=== PATIENT | female | born 1940 | race Caucasian/White ===

== ENCOUNTER 2018-03-30 15:08 | Inpatient (IN) ==
[2018-03-30] MEDS ORDERED: SODIUM CHLORIDE 0.9% 500 ML IV STA (16:45)
[2018-03-30 17:09] LABS: Basophils # 0.1 10*3/uL (0.0-0.2); Basophils % 0.4 % (0.0-0.8); Eosinophils % 0.1 % (0.00-10.9); Hematocrit 30.8 VOL% (35.7-47.0); Hemoglobin 9.9 GM/DL (12.0-16.0); Immature Granulocytes % 0.7 %; Immature Granulocytes Absolute 0.15 #; Lymphocytes # 1.8 10*3/uL (1.4-4.0); Mean Corpuscular HGB Conc 32.1 GM/DL (32-36); Mean Corpuscular Hemoglobin 29 PG (27-34); Monocytes # 1.2 10*3/uL (0.11-0.8); Monocytes % 5.2 % (1.7-12.7); Neutrophils # 19.6 10*3/uL (1.4-7.4); Neutrophils % 85.6 % (38.7-73.9); Platelet Count 212 T/CUMM (130-400); Red Blood Count 3.46 MC/CUMM (3.8-5.5); Red Cell Distribution Width 17.3 % (9.3-17.3); White Blood Count 22.8 T/CUMM (4-12)
[2018-03-30 17:15] LABS: Apearance,Urine Slightly Hazy (Clear); Bacteria,Urine Occasional /HPF (Few); Bilirubin,Urine Negative (Negative); Blood, Urine Small mg/dL (Negative); Glucose,Urine (UA) Negative (Negative); Ketones,Urine Negative (Negative); Mucus,Urine Occasional /LPF (Occasional); Nitrite,Urine Positive (Negative); Protein,Urine Negative; RBC,Urine 3 /HPF (0-4); Squamous Epithelial Cell,Urine Occasional /HPF (0-10); Urine Color Yellow (Yellow); Urine Specific Gravity 1.013 (1.001-1.035); Urine Urobilinogen < 2.0 EU/DL (0.2-1.0); WBC,Urine 31 /HPF (0-6)
[2018-03-30 17:34] LABS: Band Neutrophils 1 % (0-10); Lymphocytes 8 % (20-55); Platelet Estimate Normal; Segmented Neutrophils 87 % (50-85); Total Cells Counted 100
[2018-03-30 17:35] LABS: Hypochromasia Slight
[2018-03-30 17:39] LABS: Alanine Aminotransferase < 9 U/L (13-56); Alkaline Phosphatase 186 U/L (45-117); Aspartate Amino Transferase 10 U/L (0-37); Blood Urea Nitrogen 17 MG/DL (7-18); Calcium 7.8 MG/DL (8.5-10.1); Glucose 88 MG/DL (74-106); Potassium 3.7 MMOL/L (3.5-5.1); Sodium 136 MMOL/L (136-145); Total Protein 6.6 G/DL (6.4-8.3)
[2018-03-30] MEDS ORDERED: NITROGLYCERIN SL 0.4 MG TABLET SL PRN (19:11)
[2018-03-30] MEDS ORDERED: ENOXAPARIN 30 MG/0.3 ML SYRINGE SUBCUT SCH (19:11)
[2018-03-30] MEDS ORDERED: MONTELUKAST 10 MG TABLET PO PRN (19:11)
[2018-03-30] MEDS: SODIUM CHLORIDE 0.9% 1,000 ML IV SCH (19:58)
[2018-03-30] MEDS: CHOLESTYRAMINE 4 GM PACK PO SCH (21:42)
[2018-03-30] MEDS: metroNIDAZOLE 250 MG TABLET PO SCH (21:42)
[2018-03-30] MEDS: ATORVASTATIN 20 MG TABLET PO SCH (21:42)
[2018-03-30] MEDS: FAMOTIDINE 20 MG TABLET PO SCH (21:42)
[2018-03-31] MEDS: VANCOMYCIN 50 MG/ML 60 ML/BOTTLE PO SCH ×4 (00:38→17:50)
[2018-03-31] MEDS: ONDANSETRON 4 MG/2 ML VIAL IV PRN ×2 (01:40→10:29)
[2018-03-31 05:13] LABS: Basophils # 0.1 10*3/uL (0.0-0.2); Basophils % 0.4 % (0.0-0.8); Eosinophils % 0.2 % (0.00-10.9); Hematocrit 27.1 VOL% (35.7-47.0); Hemoglobin 8.6 GM/DL (12.0-16.0); Immature Granulocytes % 0.7 %; Immature Granulocytes Absolute 0.13 #; Lymphocytes # 2.4 10*3/uL (1.4-4.0); Lymphocytes % 13.8 % (21.3-54.2); Mean Corpuscular HGB Conc 31.7 GM/DL (32-36); Mean Corpuscular Hemoglobin 28 PG (27-34); Mean Corpuscular Volume 88.3 FL (87-102); Monocytes # 1.3 10*3/uL (0.11-0.8); Monocytes % 7.6 % (1.7-12.7); Neutrophils # 13.5 10*3/uL (1.4-7.4); Neutrophils % 77.3 % (38.7-73.9); Platelet Count 192 T/CUMM (130-400); Red Blood Count 3.07 MC/CUMM (3.8-5.5); Red Cell Distribution Width 17.2 % (9.3-17.3); White Blood Count 17.5 T/CUMM (4-12)
[2018-03-31 05:27] LABS: INR 1.5; PT Patient Result 16.1 SECS
[2018-03-31 05:47] LABS: Calcium 7.4 MG/DL (8.5-10.1); Osmolality,Calculated 274.7 MOS/KG (273-304); Potassium 3.5 MMOL/L (3.5-5.1); Troponin I 0.028 NG/ML (0.00-0.045)
[2018-03-31] MEDS: LEVOTHYROXINE 50 MCG TABLET PO SCH (06:12)
[2018-03-31] MEDS ORDERED: NON-FORMULARY MEDICATION (Tiotropium Br/Olodaterol Hcl [Stiolto Respimat Inhal Spray] 1 PU INH SCH (09:00)
[2018-03-31] MEDS: ALLOPURINOL 300 MG TABLET PO SCH (09:37)
[2018-03-31] MEDS: ISOSORBIDE MONONITRATE 30 MG TABLET PO SCH (09:37)
[2018-03-31] MEDS: CHOLESTYRAMINE 4 GM PACK PO SCH ×2 (09:37→22:49)
[2018-03-31] MEDS: metroNIDAZOLE 250 MG TABLET PO SCH ×4 (09:37→22:49)
[2018-03-31] MEDS: PANTOPRAZOLE 40 MG TABLET PO SCH (09:37)
[2018-03-31] MEDS: RIVAROXABAN 20 MG TABLET PO SCH (09:37)
[2018-03-31] MEDS: SODIUM CHLORIDE 0.9% 1,000 ML IV SCH ×2 (13:08→16:44)
[2018-03-31] MEDS: FAMOTIDINE 20 MG TABLET PO SCH (22:49)
[2018-03-31] MEDS: ATORVASTATIN 20 MG TABLET PO SCH (22:49)
[2018-04-01] MEDS: VANCOMYCIN 50 MG/ML 60 ML/BOTTLE PO SCH ×4 (00:36→17:06)
[2018-04-01 04:41] LABS: Basophils # 0.1 10*3/uL (0.0-0.2); Basophils % 0.5 % (0.0-0.8); Eosinophils # 0.1 10*3/uL (0.0-0.87); Hematocrit 28.3 VOL% (35.7-47.0); Hemoglobin 8.8 GM/DL (12.0-16.0); Immature Granulocytes % 0.8 %; Immature Granulocytes Absolute 0.09 #; Lymphocytes # 1.9 10*3/uL (1.4-4.0); Lymphocytes % 17.2 % (21.3-54.2); Mean Corpuscular HGB Conc 31.1 GM/DL (32-36); Mean Corpuscular Hemoglobin 28 PG (27-34); Mean Corpuscular Volume 89.8 FL (87-102); Mean Platelet Volume 12.4 FL (9.6-12.0); Monocytes % 9.3 % (1.7-12.7); Neutrophils # 7.8 10*3/uL (1.4-7.4); Neutrophils % 71.2 % (38.7-73.9); Platelet Count 181 T/CUMM (130-400); Red Blood Count 3.15 MC/CUMM (3.8-5.5); Red Cell Distribution Width 17.2 % (9.3-17.3); White Blood Count 10.9 T/CUMM (4-12)
[2018-04-01 05:00] LABS: Calcium 7.5 MG/DL (8.5-10.1); Osmolality,Calculated 274.7 MOS/KG (273-304); Potassium 3.4 MMOL/L (3.5-5.1)
[2018-04-01 05:11] LABS: Risk Ratio 1.42; VLDL CHOLESTEROL 7.6 MG/DL
[2018-04-01] MEDS: LEVOTHYROXINE 50 MCG TABLET PO SCH (05:36)
[2018-04-01] MEDS: metroNIDAZOLE 250 MG TABLET PO SCH ×4 (08:39→20:30)
[2018-04-01] MEDS: RIVAROXABAN 20 MG TABLET PO SCH (08:39)
[2018-04-01] MEDS: ISOSORBIDE MONONITRATE 30 MG TABLET PO SCH (08:39)
[2018-04-01] MEDS: ALLOPURINOL 300 MG TABLET PO SCH (08:39)
[2018-04-01] MEDS: PANTOPRAZOLE 40 MG TABLET PO SCH (08:40)
[2018-04-01] MEDS: CHOLESTYRAMINE 4 GM PACK PO SCH (08:40)
[2018-04-01] MEDS: MAGNESIUM OXIDE 400 MG TABLET PO SCH ×2 (10:03→20:30)
[2018-04-01] MEDS: POTASSIUM CHLORIDE 20 MEQ TABLET PO SCH ×3 (10:04→17:05)
[2018-04-01] MEDS: SODIUM CHLORIDE 0.9% 1,000 ML IV SCH (12:09)
[2018-04-01] MEDS: ONDANSETRON 4 MG/2 ML VIAL IV PRN (12:10)
[2018-04-01] MEDS: ATORVASTATIN 20 MG TABLET PO SCH (20:30)
[2018-04-01] MEDS: FAMOTIDINE 20 MG TABLET PO SCH (20:30)
[2018-04-02] MEDS: VANCOMYCIN 50 MG/ML 60 ML/BOTTLE PO SCH ×2 (00:11→06:21)
[2018-04-02] MEDS: SODIUM CHLORIDE 0.9% 1,000 ML IV SCH (01:33)
[2018-04-02 05:21] LABS: Calcium 7.5 MG/DL (8.5-10.1); Osmolality,Calculated 274.5 MOS/KG (273-304); Potassium 4.1 MMOL/L (3.5-5.1)
[2018-04-02] MEDS: LEVOTHYROXINE 50 MCG TABLET PO SCH (06:20)
[2018-04-02 08:37] VITALS: BP 178/72
[2018-04-02] MEDS ORDERED: metroNIDAZOLE 250 MG TABLET PO SCH (09:00)
[2018-04-02] MEDS: ISOSORBIDE MONONITRATE 30 MG TABLET PO SCH (09:07)
[2018-04-02] MEDS: RIVAROXABAN 20 MG TABLET PO SCH (09:07)
[2018-04-02] MEDS: MAGNESIUM OXIDE 400 MG TABLET PO SCH (09:07)
[2018-04-02] MEDS: ALLOPURINOL 300 MG TABLET PO SCH (09:08)
[2018-04-02] MEDS: PANTOPRAZOLE 40 MG TABLET PO SCH (09:08)
== END 2018-04-02 11:25 | disposition home or self-care (01) | DRG 372 ==
LOC: EDUNIT# → EDBD → N.ED 15:08 → N.EDINP 17:51 → N.3E 19:09
PROVIDERS: ADMIT Internal Medicine; ATTEND Internal Medicine

== ENCOUNTER 2021-07-17 06:18 | Observation (INO) ==
[2021-07-17 08:47] LABS: Basophils # 0.1 10*3/uL (0.0-0.2); Basophils % 0.6 % (0.0-0.8); Eosinophils # 0.2 10*3/uL (0.0-0.87); Eosinophils % 2.3 % (0.00-10.9); Hematocrit 24.5 VOL% (35.7-47.0); Hemoglobin 7.7 GM/DL (12.0-16.0); Immature Granulocytes % 0.5 %; Immature Granulocytes Absolute 0.04 #; Lymphocytes % 24.9 % (21.3-54.2); Mean Corpuscular HGB Conc 31.4 GM/DL (32-36); Mean Corpuscular Volume 97.2 FL (87-102); Mean Platelet Volume 11.2 FL (9.6-12.0); Monocytes # 0.7 10*3/uL (0.11-0.8); Neutrophils % 62.7 % (38.7-73.9); Platelet Count 136 T/CUMM (130-400); Red Blood Count 2.52 MC/CUMM (3.8-5.5); Red Cell Distribution Width 16.7 % (9.3-17.3); White Blood Count 8.2 T/CUMM (4-12)
[2021-07-17 09:31] LABS: Albumin 3.1 G/DL (3.4-5.0); Bilirubin,Total 0.5 MG/DL (0.20-1.00); Calcium 8.7 MG/DL (8.5-10.1); Osmolality,Calculated 283.5 MOS/KG (273-304); Potassium 4.8 MMOL/L (3.5-5.1); Total Protein 6.4 G/DL (6.4-8.2)
[2021-07-17] MEDS ORDERED: DEXTROSE 10% 250 ML BAG IV PRN (10:09)
[2021-07-17] MEDS ORDERED: ACETAMINOPHEN 325 MG TABLET PO PRN (10:09)
[2021-07-17] MEDS ORDERED: hydrALAZINE 20 MG/1 ML VIAL IV PRN (10:09)
[2021-07-17] MEDS ORDERED: GLUCAGON 1 MG VIAL IM PRN (10:09)
[2021-07-17] MEDS ORDERED: SODIUM CHLORIDE 0.9% 1,000 ML IV PRN (10:18)
[2021-07-17 15:26] LABS: Bacteria,Urine Many /HPF (Few); Squamous Epithelial Cell,Urine Occasional /HPF (0-10)
[2021-07-17 15:27] LABS: Bilirubin,Urine Negative (Negative); Blood, Urine Negative (Negative); Glucose,Urine (UA) Negative (Negative); Ketones,Urine Negative (Negative); Nitrite,Urine Positive (Negative); Protein,Urine Negative (Negative); Urine Appearance Slightly Cloudy (Clear); Urine Color Yellow (Yellow); Urine Specific Gravity 1.025 (1.001-1.035); Urine Urobilinogen 0.2 eU/dL (<2.0)
[2021-07-17] MEDS: LACTATED RINGERS 1,000 ML IV SCH (18:12)
[2021-07-17 19:18] LABS: Hematocrit 24.1 VOL% (35.7-47.0); Hemoglobin 7.7 GM/DL (12.0-16.0)
[2021-07-18] MEDS: LACTATED RINGERS 1,000 ML IV SCH ×2 (02:00→15:20)
[2021-07-18 05:32] LABS: Basophils # 0.1 10*3/uL (0.0-0.2); Basophils % 0.9 % (0.0-0.8); Eosinophils # 0.2 10*3/uL (0.0-0.87); Eosinophils % 2.6 % (0.00-10.9); Hematocrit 26.2 VOL% (35.7-47.0); Hemoglobin 8.5 GM/DL (12.0-16.0); Immature Granulocytes % 0.5 %; Immature Granulocytes Absolute 0.03 #; Lymphocytes # 1.8 10*3/uL (1.4-4.0); Lymphocytes % 27.8 % (21.3-54.2); Mean Corpuscular HGB Conc 32.4 GM/DL (32-36); Mean Platelet Volume 11.4 FL (9.6-12.0); Monocytes # 0.6 10*3/uL (0.11-0.8); Monocytes % 8.9 % (1.7-12.7); Neutrophils % 59.3 % (38.7-73.9); Platelet Count 130 T/CUMM (130-400); Red Blood Count 2.73 MC/CUMM (3.8-5.5); Red Cell Distribution Width 16.3 % (9.3-17.3); White Blood Count 6.6 T/CUMM (4-12)
[2021-07-18 05:56] LABS: Calcium 8.9 MG/DL (8.5-10.1); Osmolality,Calculated 280.7 MOS/KG (273-304); Potassium 5.2 MMOL/L (3.5-5.1); Risk Ratio 1.76; Thyroid Stimulating Hormone 6.16 uIU/ml (0.358-3.74); VLDL Cholesterol 10.8 MG/DL
[2021-07-18 05:58] LABS: Hypochromia Slight; Platelet Estimate Normal
[2021-07-18] MEDS: PANTOPRAZOLE 40 MG TABLET PO SCH (08:37)
[2021-07-18] MEDS ORDERED: NITROGLYCERIN SL 0.4 MG TABLET SL PRN (10:36)
[2021-07-18] MEDS ORDERED: SULFAMETHOX/TRIMETHOPRIM 800-160 MG TABLET PO SCH (12:00)
[2021-07-18] MEDS: ONDANSETRON 4 MG/2 ML VIAL IV PRN ×2 (12:20→21:16)
[2021-07-18] MEDS: ISOSORBIDE MONONITRATE 60 MG TABLET PO SCH (12:22)
[2021-07-18] MEDS: MAGNESIUM OXIDE 400 MG TABLET PO SCH ×2 (12:22→21:00)
[2021-07-18] MEDS: VALSARTAN 80 MG TABLET PO SCH (12:22)
[2021-07-18] MEDS: GABAPENTIN 400 MG CAPSULE PO SCH ×2 (12:22→21:00)
[2021-07-18] MEDS: SULFAMETHOX/TRIMETHOPRIM 800-160 MG TABLET PO SCH ×2 (12:23→21:00)
[2021-07-18 15:47] LABS: % Iron Saturation 25.1 % (18-50)
[2021-07-18 15:55] LABS: Folate 12.94 NG/ML (5.38-24.0)
[2021-07-19] MEDS: LACTATED RINGERS 1,000 ML IV SCH (04:17)
[2021-07-19 05:39] LABS: Basophils % 0.6 % (0.0-0.8); Eosinophils # 0.2 10*3/uL (0.0-0.87); Eosinophils % 2.5 % (0.00-10.9); Hematocrit 24.6 VOL% (35.7-47.0); Hemoglobin 7.8 GM/DL (12.0-16.0); Immature Granulocytes % 0.3 %; Immature Granulocytes Absolute 0.02 #; Lymphocytes # 1.6 10*3/uL (1.4-4.0); Lymphocytes % 25.3 % (21.3-54.2); Mean Corpuscular HGB Conc 31.7 GM/DL (32-36); Mean Corpuscular Volume 97.2 FL (87-102); Mean Platelet Volume 11.5 FL (9.6-12.0); Monocytes # 0.6 10*3/uL (0.11-0.8); Monocytes % 9.6 % (1.7-12.7); Neutrophils % 61.7 % (38.7-73.9); Platelet Count 118 T/CUMM (130-400); Red Blood Count 2.53 MC/CUMM (3.8-5.5); Red Cell Distribution Width 16.3 % (9.3-17.3); White Blood Count 6.4 T/CUMM (4-12)
[2021-07-19 05:55] LABS: Calcium 8.5 MG/DL (8.5-10.1); Osmolality,Calculated 277.7 MOS/KG (273-304); Potassium 5.5 MMOL/L (3.5-5.1)
[2021-07-19] MEDS ORDERED: LEVOTHYROXINE 50 MCG TABLET PO SCH (06:30)
[2021-07-19] MEDS ORDERED: SODIUM POLYSTYRENE SULFATE 15 GM/60 ML BOTTLE PO STA (07:37)
[2021-07-19] MEDS: ONDANSETRON 4 MG/2 ML VIAL IV PRN (08:05)
[2021-07-19] MEDS ORDERED: allopurinoL 300 MG TABLET PO SCH (09:00)
[2021-07-19] MEDS: PANTOPRAZOLE 40 MG TABLET PO SCH (09:08)
[2021-07-19] MEDS: SULFAMETHOX/TRIMETHOPRIM 800-160 MG TABLET PO SCH (09:08)
[2021-07-19] MEDS: MAGNESIUM OXIDE 400 MG TABLET PO SCH (09:09)
[2021-07-19] MEDS: VALSARTAN 80 MG TABLET PO SCH (09:09)
[2021-07-19] MEDS: ISOSORBIDE MONONITRATE 60 MG TABLET PO SCH (09:09)
[2021-07-19] MEDS: GABAPENTIN 400 MG CAPSULE PO SCH (09:09)
[2021-07-19] MEDS ORDERED: SODIUM CHLORIDE 0.9% 1,000 ML IV PRN (09:14)
[2021-07-19 14:15] VITALS: BP 155/81
[2021-07-19 15:06] LABS: Hematocrit 28.3 VOL% (35.7-47.0)
[2021-07-19] MEDS ORDERED: ATORVASTATIN 20 MG TABLET PO SCH (21:00)
== END 2021-07-19 16:00 | disposition home or self-care (01) ==
LOC: EDBD → EDUNIT# → N.EDINP 06:18 → N.ED 06:18 → SUATTDRO 09:13 → N.EDINP 15:30 → N.3E 15:33
PROVIDERS: ADMIT Hospitalist; ATTEND Internal Medicine

== ENCOUNTER 2021-12-14 05:27 | Inpatient (IN) ==
[2021-12-14 05:57] LABS: Arterial Base Excess iSTAT 5 MMOL/L (-2.5-2.5); Arterial Bicarbonate iSTAT 34.2 MMOL/L (20-26); Arterial O2 Saturation iSTAT 99 % (95-100); Arterial PCO2 iSTAT 78 MM HG (35-48); Arterial PO2 iSTAT 169 MM HG (80-95); Arterial Total CO2 iSTAT 37 MMO/L (23-27); Arterial pH iSTAT 7.251 (7.35-7.45)
[2021-12-14] MEDS ORDERED: ETOMIDATE 20 MG/10 ML VIAL IV ONE (05:59)
[2021-12-14] MEDS ORDERED: VECURONIUM 10 MG VIAL IV ONE (05:59)
[2021-12-14 06:02] LABS: Basophils % 0.4 % (0.0-0.8); Eosinophils # 0.1 10*3/uL (0.0-0.87); Eosinophils % 1.5 % (0.00-10.9); Hematocrit 32.8 VOL% (35.7-47.0); Hemoglobin 9.4 GM/DL (12.0-16.0); Immature Granulocytes % 0.6 %; Immature Granulocytes Absolute 0.05 #; Lymphocytes # 1.3 10*3/uL (1.4-4.0); Lymphocytes % 17.1 % (21.3-54.2); Mean Corpuscular HGB Conc 28.7 GM/DL (32-36); Mean Corpuscular Volume 103.5 FL (87-102); Mean Platelet Volume 11.5 FL (9.6-12.0); Monocytes # 0.8 10*3/uL (0.11-0.8); Monocytes % 10.8 % (1.7-12.7); Neutrophils % 69.6 % (38.7-73.9); Platelet Count 146 T/CUMM (130-400); Red Blood Count 3.17 MC/CUMM (3.8-5.5); Red Cell Distribution Width 20.2 % (9.3-17.3); White Blood Count 7.8 T/CUMM (4-12)
[2021-12-14] MEDS ORDERED: ETOMIDATE 20 MG/10 ML VIAL IV STA (06:03)
[2021-12-14] MEDS ORDERED: VECURONIUM 10 MG VIAL IV STA (06:04)
[2021-12-14 06:26] LABS: Alanine Aminotransferase 25 U/L (13-56); Albumin 3.1 G/DL (3.4-5.0); Alkaline Phosphatase 152 U/L (45-117); Aspartate Amino Transferase 18 U/L (0-37); Blood Urea Nitrogen 23 MG/DL (7-18); Calcium 8.7 MG/DL (8.5-10.1); Carbon Dioxide 35 MMOL/L (21-32); Chloride 103 MMOL/L (98-107); Glucose 107 MG/DL (74-106); Osmolality,Calculated 284.3 MOS/KG (273-304); Potassium 4.3 MMOL/L (3.5-5.1); Sodium 141 MMOL/L (136-145); Total Protein 6.1 G/DL (6.4-8.2)
[2021-12-14 06:51] LABS: Barbiturates Screen,Urine Negative (Negative); Benzodiazepines Screen,Urine Negative (Negative); Cannabinoid Screen,Urine Negative (Negative); Opiate Screen,Urine Negative (Negative); Phencyclidine Screen,Urine Negative (Negative)
[2021-12-14 07:01] LABS: Bacteria,Urine Occasional /HPF (Few); Bilirubin,Urine Negative (Negative); Blood, Urine Negative (Negative); Glucose,Urine (UA) Negative (Negative); Hyaline Casts,Urine 34 /LPF (0-3); Ketones,Urine 5 mg/dL (Negative); Mucus,Urine Few /LPF (Occasional); Nitrite,Urine Positive (Negative); Protein,Urine 30 mg/dL (Negative); RBC,Urine 1 /HPF (0-4); Squamous Epithelial Cell,Urine Occasional /HPF (0-10); Urine Appearance Slightly Hazy (Clear); Urine Color Amber (Yellow); Urine Specific Gravity 1.019 (1.001-1.035)
[2021-12-14] MEDS ORDERED: INFLUENZA VIRUS VACCINE 0.5 ML SYRINGE IM ONE (10:44)
[2021-12-14 11:21] LABS: Arterial Base Excess iSTAT 8 MMOL/L (-2.5-2.5); Arterial O2 Saturation iSTAT 100 % (95-100); Arterial PCO2 iSTAT 61 MM HG (35-48); Arterial PO2 iSTAT 573 MM HG (80-95); Arterial Total CO2 iSTAT 37 MMO/L (23-27); Arterial pH iSTAT 7.366 (7.35-7.45)
[2021-12-14] MEDS: INSULIN LISPRO 100 UNIT/ML SUBCUT SCH ×2 (11:50→18:10)
[2021-12-14] MEDS ORDERED: NITROGLYCERIN SL 0.4 MG TABLET SL PRN (12:15)
[2021-12-14] MEDS ORDERED: hydroCHLOROthiazide 25 MG TABLET PO PRN (12:15)
[2021-12-14] MEDS: cefTRIAXone 1,000 MG in SODIUM CHLORIDE 0.9% 100 ML IV SCH (12:25)
[2021-12-14] MEDS: carvediloL 3.125 MG TABLET PO SCH ×2 (12:39→21:06)
[2021-12-14] MEDS: ISOSORBIDE MONONITRATE 60 MG TABLET PO SCH (12:39)
[2021-12-14] MEDS: AZITHROMYCIN INJ 250 MG in SODIUM CHLORIDE 0.9% 250 ML IV SCH (12:56)
[2021-12-14] MEDS ORDERED: MIDAZOLAM 2 MG/2 ML VIAL IV ONE (13:50)
[2021-12-14] MEDS ORDERED: MIDAZOLAM 2 MG/2 ML VIAL ONE (13:50)
[2021-12-14] MEDS ORDERED: MIDAZOLAM 100 MG in SODIUM CHLORIDE 0.9% 80 ML IV SCH (14:30)
[2021-12-14] MEDS: GABAPENTIN 400 MG CAPSULE PO SCH (21:06)
[2021-12-14] MEDS: FERROUS SULFATE 325 MG TABLET PO SCH (21:06)
[2021-12-14] MEDS: MAGNESIUM OXIDE 400 MG TABLET PO SCH (21:06)
[2021-12-14] MEDS: MIDAZOLAM 100 MG in SODIUM CHLORIDE 0.9% 80 ML IV PRN (22:17)
[2021-12-15] MEDS: INSULIN LISPRO 100 UNIT/ML SUBCUT SCH ×4 (00:11→18:26)
[2021-12-15] MEDS: PHENYLEPHRINE DRIP 40 MG/250 ML PREMIX IV PRN (00:18)
[2021-12-15 03:26] LABS: ABG Base Excess 4.1 MMOL/L (-2.5-2.5); ABG HCO3 28.1 MMOL/L (20-26); ABG Oxygen Saturation 99.6 % (95-100); ABG PCO2 44.6 MM HG (35-48); ABG PH 7.421 (7.35-7.45)
[2021-12-15 03:28] LABS: Basophils % 0.4 % (0.0-0.8); Eosinophils # 0.1 10*3/uL (0.0-0.87); Eosinophils % 1.1 % (0.00-10.9); Hematocrit 27.8 VOL% (35.7-47.0); Hemoglobin 8.5 GM/DL (12.0-16.0); Lymphocytes # 1.2 10*3/uL (1.4-4.0); Lymphocytes % 11.3 % (21.3-54.2); Mean Corpuscular HGB Conc 30.6 GM/DL (32-36); Mean Corpuscular Volume 97.2 FL (87-102); Mean Platelet Volume 11.2 FL (9.6-12.0); Monocytes % 9.9 % (1.7-12.7); Neutrophils % 76.3 % (38.7-73.9); Platelet Count 137 T/CUMM (130-400); Red Blood Count 2.86 MC/CUMM (3.8-5.5); Red Cell Distribution Width 19.5 % (9.3-17.3); White Blood Count 10.4 T/CUMM (4-12)
[2021-12-15 03:45] LABS: Albumin 2.4 G/DL (3.4-5.0); Bilirubin,Total 0.7 MG/DL (0.20-1.00); Calcium 8.2 MG/DL (8.5-10.1); Osmolality,Calculated 284.1 MOS/KG (273-304); Phosphorous 2.3 MG/DL (2.5-4.9); Potassium 3.4 MMOL/L (3.5-5.1); Total Protein 5.2 G/DL (6.4-8.2)
[2021-12-15] MEDS: LEVOTHYROXINE 50 MCG TABLET PO SCH (06:35)
[2021-12-15] MEDS: ISOSORBIDE MONONITRATE 60 MG TABLET PO SCH (08:57)
[2021-12-15] MEDS: carvediloL 3.125 MG TABLET PO SCH (08:57)
[2021-12-15] MEDS: FERROUS SULFATE 325 MG TABLET PO SCH ×2 (08:57→20:31)
[2021-12-15] MEDS: VALSARTAN 160 MG TABLET PO SCH (08:57)
[2021-12-15] MEDS: allopurinoL 100 MG TABLET PO SCH (08:58)
[2021-12-15] MEDS: MAGNESIUM OXIDE 400 MG TABLET PO SCH ×2 (08:58→20:31)
[2021-12-15] MEDS: GABAPENTIN 400 MG CAPSULE PO SCH ×2 (09:01→20:31)
[2021-12-15] MEDS ORDERED: FUROSEMIDE 40 MG/4 ML VIAL IV ONE (09:41)
[2021-12-15] MEDS: POTASSIUM CHLORIDE 20 MEQ TABLET PO PRN ×3 (10:36→14:29)
[2021-12-15] MEDS: cefTRIAXone 1,000 MG in SODIUM CHLORIDE 0.9% 100 ML IV SCH (10:37)
[2021-12-15] MEDS: AZITHROMYCIN INJ 250 MG in SODIUM CHLORIDE 0.9% 250 ML IV SCH (11:31)
[2021-12-15] MEDS: carvediloL 6.25 MG TABLET NG SCH (20:02)
[2021-12-15] MEDS: ISOSORBIDE DINITRATE 10 MG TABLET NG SCH (20:03)
[2021-12-16] MEDS: INSULIN LISPRO 100 UNIT/ML SUBCUT SCH ×5 (00:24→23:52)
[2021-12-16 03:35] LABS: ABG Base Excess 8.6 MMOL/L (-2.5-2.5); ABG HCO3 32.4 MMOL/L (20-26); ABG Oxygen Saturation 99.3 % (95-100); ABG PCO2 47.4 MM HG (35-48); ABG PH 7.458 (7.35-7.45); ABG TCO2 31.2 MMOL/L (23-27)
[2021-12-16 03:39] LABS: Basophils % 0.4 % (0.0-0.8); Eosinophils # 0.1 10*3/uL (0.0-0.87); Eosinophils % 0.9 % (0.00-10.9); Hematocrit 27.7 VOL% (35.7-47.0); Hemoglobin 8.7 GM/DL (12.0-16.0); Lymphocytes # 1.4 10*3/uL (1.4-4.0); Lymphocytes % 14.3 % (21.3-54.2); Mean Corpuscular HGB Conc 31.4 GM/DL (32-36); Mean Corpuscular Volume 95.5 FL (87-102); Mean Platelet Volume 11.7 FL (9.6-12.0); Monocytes # 1.1 10*3/uL (0.11-0.8); Monocytes % 11.3 % (1.7-12.7); Neutrophils % 72.1 % (38.7-73.9); Platelet Count 160 T/CUMM (130-400); Red Cell Distribution Width 19.3 % (9.3-17.3); White Blood Count 10.1 T/CUMM (4-12)
[2021-12-16 03:57] LABS: Calcium 8.3 MG/DL (8.5-10.1); Osmolality,Calculated 282.5 MOS/KG (273-304); Potassium 3.9 MMOL/L (3.5-5.1)
[2021-12-16] MEDS: LEVOTHYROXINE 50 MCG TABLET PO SCH (06:22)
[2021-12-16] MEDS: PHENYLEPHRINE DRIP 40 MG/250 ML PREMIX IV PRN (07:37)
[2021-12-16] MEDS ORDERED: MAGNESIUM SULF RIDER 2 GM/50 ML PREMIX IV ONE (07:54)
[2021-12-16] MEDS: FERROUS SULFATE 325 MG TABLET PO SCH ×2 (09:31→20:17)
[2021-12-16] MEDS: ASPIRIN CHEW 81 MG TABLET PO SCH (09:31)
[2021-12-16] MEDS: MAGNESIUM OXIDE 400 MG TABLET PO SCH ×2 (09:31→20:17)
[2021-12-16] MEDS: ISOSORBIDE DINITRATE 10 MG TABLET NG SCH (09:31)
[2021-12-16] MEDS: VALSARTAN 160 MG TABLET PO SCH (09:31)
[2021-12-16] MEDS: carvediloL 6.25 MG TABLET NG SCH (09:31)
[2021-12-16] MEDS: GABAPENTIN 400 MG CAPSULE PO SCH ×2 (09:31→20:17)
[2021-12-16] MEDS: allopurinoL 100 MG TABLET PO SCH (09:59)
[2021-12-16] MEDS: cefTRIAXone 1,000 MG in SODIUM CHLORIDE 0.9% 100 ML IV SCH (11:37)
[2021-12-16] MEDS: AZITHROMYCIN INJ 250 MG in SODIUM CHLORIDE 0.9% 250 ML IV SCH (12:10)
[2021-12-16] MEDS: PANTOPRAZOLE 40 MG VIAL IV SCH (15:18)
[2021-12-17 03:31] LABS: Basophils # 0.1 10*3/uL (0.0-0.2); Basophils % 0.5 % (0.0-0.8); Eosinophils # 0.1 10*3/uL (0.0-0.87); Hematocrit 28.6 VOL% (35.7-47.0); Hemoglobin 9.1 GM/DL (12.0-16.0); Immature Granulocytes % 1.1 %; Immature Granulocytes Absolute 0.11 #; Lymphocytes # 1.8 10*3/uL (1.4-4.0); Lymphocytes % 18.6 % (21.3-54.2); Mean Corpuscular HGB Conc 31.8 GM/DL (32-36); Mean Corpuscular Volume 94.7 FL (87-102); Mean Platelet Volume 12.1 FL (9.6-12.0); Monocytes # 1.2 10*3/uL (0.11-0.8); Monocytes % 12.4 % (1.7-12.7); Neutrophils % 66.4 % (38.7-73.9); Platelet Count 166 T/CUMM (130-400); Red Blood Count 3.02 MC/CUMM (3.8-5.5); Red Cell Distribution Width 19.2 % (9.3-17.3); White Blood Count 9.8 T/CUMM (4-12)
[2021-12-17 03:32] LABS: ABG Base Excess 8.1 MMOL/L (-2.5-2.5); ABG HCO3 31.9 MMOL/L (20-26); ABG Oxygen Saturation 99.4 % (95-100); ABG PCO2 46.8 MM HG (35-48); ABG PH 7.456 (7.35-7.45); ABG TCO2 30.3 MMOL/L (23-27)
[2021-12-17 03:46] LABS: Calcium 8.3 MG/DL (8.5-10.1); Osmolality,Calculated 280.8 MOS/KG (273-304); Potassium 4.3 MMOL/L (3.5-5.1)
[2021-12-17] MEDS: PHENYLEPHRINE DRIP 40 MG/250 ML PREMIX IV PRN ×2 (04:39→22:14)
[2021-12-17] MEDS: INSULIN LISPRO 100 UNIT/ML SUBCUT SCH ×4 (05:38→23:24)
[2021-12-17] MEDS: LEVOTHYROXINE 50 MCG TABLET PO SCH (05:38)
[2021-12-17] MEDS: PANTOPRAZOLE 40 MG VIAL IV SCH (08:22)
[2021-12-17] MEDS: ASPIRIN CHEW 81 MG TABLET PO SCH (08:24)
[2021-12-17] MEDS: allopurinoL 100 MG TABLET PO SCH (08:24)
[2021-12-17] MEDS: MAGNESIUM OXIDE 400 MG TABLET PO SCH ×2 (08:24→20:46)
[2021-12-17] MEDS: GABAPENTIN 400 MG CAPSULE PO SCH ×2 (08:25→20:46)
[2021-12-17] MEDS: FERROUS SULFATE 325 MG TABLET PO SCH ×2 (08:25→20:46)
[2021-12-17 09:26] LABS: Myeloperoxidase Antibody 0.5 U
[2021-12-17] MEDS: cefTRIAXone 1,000 MG in SODIUM CHLORIDE 0.9% 100 ML IV SCH (11:20)
[2021-12-17] MEDS: AZITHROMYCIN INJ 250 MG in SODIUM CHLORIDE 0.9% 250 ML IV SCH (12:33)
[2021-12-17 14:47] LABS: Antinuclear Ab, S 0.4 U
[2021-12-17] MEDS: ATORVASTATIN 80 MG TABLET PO SCH (20:46)
[2021-12-18] MEDS: MIDAZOLAM 100 MG in SODIUM CHLORIDE 0.9% 80 ML IV PRN (02:59)
[2021-12-18 04:12] LABS: ABG Base Excess 5.2 MMOL/L (-2.5-2.5); ABG HCO3 29.1 MMOL/L (20-26); ABG Oxygen Saturation 99.2 % (95-100); ABG PH 7.412 (7.35-7.45); ABG TCO2 28.2 MMOL/L (23-27)
[2021-12-18 04:16] LABS: Basophils # 0.1 10*3/uL (0.0-0.2); Basophils % 0.7 % (0.0-0.8); Eosinophils # 0.3 10*3/uL (0.0-0.87); Eosinophils % 2.3 % (0.00-10.9); Hematocrit 29.6 VOL% (35.7-47.0); Hemoglobin 9.3 GM/DL (12.0-16.0); Immature Granulocytes % 1.3 %; Immature Granulocytes Absolute 0.15 #; Lymphocytes % 17.6 % (21.3-54.2); Mean Corpuscular HGB Conc 31.4 GM/DL (32-36); Mean Corpuscular Volume 96.4 FL (87-102); Mean Platelet Volume 12.1 FL (9.6-12.0); Monocytes # 1.2 10*3/uL (0.11-0.8); Monocytes % 10.7 % (1.7-12.7); Neutrophils % 67.4 % (38.7-73.9); Platelet Count 185 T/CUMM (130-400); Red Blood Count 3.07 MC/CUMM (3.8-5.5); Red Cell Distribution Width 19.3 % (9.3-17.3); White Blood Count 11.2 T/CUMM (4-12)
[2021-12-18 04:26] LABS: Calcium 8.1 MG/DL (8.5-10.1); Osmolality,Calculated 281.7 MOS/KG (273-304); Potassium 4.2 MMOL/L (3.5-5.1)
[2021-12-18] MEDS: LEVOTHYROXINE 50 MCG TABLET PO SCH (05:51)
[2021-12-18] MEDS: INSULIN LISPRO 100 UNIT/ML SUBCUT SCH ×3 (05:51→18:25)
[2021-12-18] MEDS: GABAPENTIN 400 MG CAPSULE PO SCH ×2 (09:23→20:51)
[2021-12-18] MEDS: FERROUS SULFATE 325 MG TABLET PO SCH ×2 (09:24→20:51)
[2021-12-18] MEDS: ASPIRIN CHEW 81 MG TABLET PO SCH (09:24)
[2021-12-18] MEDS: allopurinoL 100 MG TABLET PO SCH (09:24)
[2021-12-18] MEDS: MAGNESIUM OXIDE 400 MG TABLET PO SCH ×2 (09:24→20:51)
[2021-12-18] MEDS: ATORVASTATIN 80 MG TABLET PO SCH ×2 (09:24→20:51)
[2021-12-18] MEDS: PANTOPRAZOLE 40 MG VIAL IV SCH (09:25)
[2021-12-18] MEDS ORDERED: FUROSEMIDE 40 MG/4 ML VIAL IV ONE (10:00)
[2021-12-18] MEDS: cefTRIAXone 1,000 MG in SODIUM CHLORIDE 0.9% 100 ML IV SCH (11:47)
[2021-12-18] MEDS: HYDROCORTISONE 100 MG VIAL IV SCH ×2 (11:47→18:25)
[2021-12-18] MEDS: AZITHROMYCIN INJ 250 MG in SODIUM CHLORIDE 0.9% 250 ML IV SCH (12:20)
[2021-12-18] MEDS: PHENYLEPHRINE DRIP 40 MG/250 ML PREMIX IV PRN (13:13)
[2021-12-19] MEDS: INSULIN LISPRO 100 UNIT/ML SUBCUT SCH ×5 (00:27→23:50)
[2021-12-19] MEDS: HYDROCORTISONE 100 MG VIAL IV SCH ×3 (03:36→18:14)
[2021-12-19 04:04] LABS: ABG Base Excess 4.3 MMOL/L (-2.5-2.5); ABG HCO3 28.3 MMOL/L (20-26); ABG Oxygen Saturation 99.1 % (95-100); ABG PCO2 45.3 MM HG (35-48); ABG TCO2 26.9 MMOL/L (23-27)
[2021-12-19 04:10] LABS: Basophils % 0.2 % (0.0-0.8); Hemoglobin 9.3 GM/DL (12.0-16.0); Immature Granulocytes % 0.9 %; Immature Granulocytes Absolute 0.11 #; Lymphocytes # 0.9 10*3/uL (1.4-4.0); Lymphocytes % 7.9 % (21.3-54.2); Mean Corpuscular Volume 95.2 FL (87-102); Monocytes # 0.5 10*3/uL (0.11-0.8); Monocytes % 4.5 % (1.7-12.7); Neutrophils % 86.5 % (38.7-73.9); Platelet Count 193 T/CUMM (130-400); Red Blood Count 3.15 MC/CUMM (3.8-5.5); Red Cell Distribution Width 18.7 % (9.3-17.3); White Blood Count 11.8 T/CUMM (4-12)
[2021-12-19 04:25] LABS: Calcium 8.3 MG/DL (8.5-10.1); Osmolality,Calculated 282.1 MOS/KG (273-304); Potassium 3.8 MMOL/L (3.5-5.1)
[2021-12-19] MEDS: LEVOTHYROXINE 50 MCG TABLET PO SCH (05:56)
[2021-12-19] MEDS: PANTOPRAZOLE 40 MG VIAL IV SCH (09:08)
[2021-12-19] MEDS: MAGNESIUM OXIDE 400 MG TABLET PO SCH ×2 (09:08→21:00)
[2021-12-19] MEDS: GABAPENTIN 400 MG CAPSULE PO SCH ×2 (09:08→21:00)
[2021-12-19] MEDS: ATORVASTATIN 80 MG TABLET PO SCH (09:08)
[2021-12-19] MEDS: allopurinoL 100 MG TABLET PO SCH (09:08)
[2021-12-19] MEDS: FERROUS SULFATE 325 MG TABLET PO SCH ×2 (09:08→21:00)
[2021-12-19] MEDS: ASPIRIN CHEW 81 MG TABLET PO SCH (09:08)
[2021-12-20] MEDS: HYDROCORTISONE 100 MG VIAL IV SCH ×3 (03:26→19:01)
[2021-12-20 04:12] LABS: Basophils % 0.1 % (0.0-0.8); Hematocrit 28.9 VOL% (35.7-47.0); Hemoglobin 9.2 GM/DL (12.0-16.0); Immature Granulocytes % 1.1 %; Immature Granulocytes Absolute 0.16 #; Lymphocytes % 6.7 % (21.3-54.2); Mean Corpuscular HGB Conc 31.8 GM/DL (32-36); Mean Corpuscular Volume 95.4 FL (87-102); Mean Platelet Volume 12.1 FL (9.6-12.0); Monocytes # 0.9 10*3/uL (0.11-0.8); Monocytes % 6.1 % (1.7-12.7); Platelet Count 191 T/CUMM (130-400); Red Blood Count 3.03 MC/CUMM (3.8-5.5); White Blood Count 14.1 T/CUMM (4-12)
[2021-12-20 04:14] LABS: ABG HCO3 28.9 MMOL/L (20-26); ABG Oxygen Saturation 99.1 % (95-100); ABG PH 7.424 (7.35-7.45); ABG TCO2 27.3 MMOL/L (23-27)
[2021-12-20 04:40] LABS: Calcium 8.3 MG/DL (8.5-10.1); Osmolality,Calculated 286.7 MOS/KG (273-304); Potassium 3.8 MMOL/L (3.5-5.1)
[2021-12-20] MEDS: INSULIN LISPRO 100 UNIT/ML SUBCUT SCH ×4 (06:03→23:40)
[2021-12-20] MEDS: LEVOTHYROXINE 50 MCG TABLET PO SCH (06:03)
[2021-12-20] MEDS ORDERED: FUROSEMIDE 40 MG/4 ML VIAL IV ONE (08:09)
[2021-12-20] MEDS: GABAPENTIN 400 MG CAPSULE PO SCH ×2 (08:52→20:39)
[2021-12-20] MEDS: ASPIRIN CHEW 81 MG TABLET PO SCH (08:53)
[2021-12-20] MEDS: ATORVASTATIN 80 MG TABLET PO SCH (08:53)
[2021-12-20] MEDS: allopurinoL 100 MG TABLET PO SCH (08:53)
[2021-12-20] MEDS: FERROUS SULFATE 325 MG TABLET PO SCH ×2 (08:53→20:39)
[2021-12-20] MEDS: MAGNESIUM OXIDE 400 MG TABLET PO SCH ×2 (08:53→20:39)
[2021-12-20] MEDS: PANTOPRAZOLE 40 MG VIAL IV SCH (08:55)
[2021-12-21] MEDS: HYDROCORTISONE 100 MG VIAL IV SCH ×2 (03:39→20:11)
[2021-12-21 04:03] LABS: Basophils % 0.1 % (0.0-0.8); Hematocrit 30.3 VOL% (35.7-47.0); Hemoglobin 9.5 GM/DL (12.0-16.0); Immature Granulocytes % 0.9 %; Immature Granulocytes Absolute 0.11 #; Lymphocytes # 1.1 10*3/uL (1.4-4.0); Lymphocytes % 8.9 % (21.3-54.2); Mean Corpuscular HGB Conc 31.4 GM/DL (32-36); Mean Corpuscular Volume 95.9 FL (87-102); Mean Platelet Volume 11.5 FL (9.6-12.0); Monocytes # 0.8 10*3/uL (0.11-0.8); Monocytes % 6.5 % (1.7-12.7); Neutrophils % 83.6 % (38.7-73.9); Platelet Count 194 T/CUMM (130-400); Red Blood Count 3.16 MC/CUMM (3.8-5.5); White Blood Count 11.8 T/CUMM (4-12)
[2021-12-21 04:18] LABS: Calcium 8.4 MG/DL (8.5-10.1); Osmolality,Calculated 289.5 MOS/KG (273-304)
[2021-12-21 04:43] LABS: ABG Base Excess 6.4 MMOL/L (-2.5-2.5); ABG HCO3 30.3 MMOL/L (20-26); ABG Oxygen Saturation 98.4 % (95-100); ABG PCO2 48.3 MM HG (35-48); ABG PH 7.426 (7.35-7.45)
[2021-12-21] MEDS: LEVOTHYROXINE 50 MCG TABLET PO SCH (06:01)
[2021-12-21] MEDS: INSULIN LISPRO 100 UNIT/ML SUBCUT SCH ×4 (06:01→20:11)
[2021-12-21 08:39] LABS: c-ANCA Negative (Negative); p-ANCA Negative (Negative)
[2021-12-21] MEDS: ASPIRIN CHEW 81 MG TABLET PO SCH (08:50)
[2021-12-21] MEDS: MAGNESIUM OXIDE 400 MG TABLET PO SCH ×2 (08:50→20:13)
[2021-12-21] MEDS: ATORVASTATIN 80 MG TABLET PO SCH (08:50)
[2021-12-21] MEDS: FERROUS SULFATE 325 MG TABLET PO SCH ×2 (08:50→20:20)
[2021-12-21] MEDS: GABAPENTIN 400 MG CAPSULE PO SCH ×2 (08:51→20:11)
[2021-12-21] MEDS: allopurinoL 100 MG TABLET PO SCH (08:51)
[2021-12-21] MEDS: PANTOPRAZOLE 40 MG VIAL IV SCH (09:43)
[2021-12-22 03:41] LABS: Basophils % 0.2 % (0.0-0.8); Hematocrit 31.8 VOL% (35.7-47.0); Hemoglobin 9.8 GM/DL (12.0-16.0); Immature Granulocytes % 0.9 %; Lymphocytes % 9.1 % (21.3-54.2); Mean Corpuscular HGB Conc 30.8 GM/DL (32-36); Mean Corpuscular Volume 97.8 FL (87-102); Mean Platelet Volume 11.1 FL (9.6-12.0); Monocytes # 0.7 10*3/uL (0.11-0.8); Monocytes % 6.7 % (1.7-12.7); Neutrophils % 83.1 % (38.7-73.9); Platelet Count 198 T/CUMM (130-400); Red Blood Count 3.25 MC/CUMM (3.8-5.5); Red Cell Distribution Width 19.1 % (9.3-17.3); White Blood Count 10.7 T/CUMM (4-12)
[2021-12-22 04:16] LABS: Albumin 2.4 G/DL (3.4-5.0); Bilirubin,Total 0.5 MG/DL (0.20-1.00); Calcium 8.7 MG/DL (8.5-10.1); Osmolality,Calculated 290.7 MOS/KG (273-304); Potassium 3.9 MMOL/L (3.5-5.1); Total Protein 6.1 G/DL (6.4-8.2)
[2021-12-22] MEDS: LEVOTHYROXINE 50 MCG TABLET PO SCH (05:40)
[2021-12-22] MEDS: INSULIN LISPRO 100 UNIT/ML SUBCUT SCH ×4 (07:15→20:35)
[2021-12-22] MEDS: ASPIRIN CHEW 81 MG TABLET PO SCH (09:09)
[2021-12-22] MEDS: MAGNESIUM OXIDE 400 MG TABLET PO SCH ×2 (09:09→20:34)
[2021-12-22] MEDS: FERROUS SULFATE 325 MG TABLET PO SCH ×2 (09:09→20:34)
[2021-12-22] MEDS: ATORVASTATIN 80 MG TABLET PO SCH (09:09)
[2021-12-22] MEDS: PANTOPRAZOLE 40 MG VIAL IV SCH (09:10)
[2021-12-22] MEDS: allopurinoL 100 MG TABLET PO SCH (09:11)
[2021-12-22] MEDS: GABAPENTIN 400 MG CAPSULE PO SCH ×2 (09:15→20:34)
[2021-12-22] MEDS: HYDROCORTISONE 100 MG VIAL IV SCH (09:36)
[2021-12-22] MEDS: predniSONE 20 MG TABLET PO SCH (10:36)
[2021-12-23] MEDS: hydrALAZINE 20 MG/1 ML VIAL IV PRN (01:18)
[2021-12-23 03:58] LABS: Basophils % 0.1 % (0.0-0.8); Hematocrit 33.3 VOL% (35.7-47.0); Hemoglobin 10.2 GM/DL (12.0-16.0); Immature Granulocytes % 0.9 %; Immature Granulocytes Absolute 0.11 #; Lymphocytes # 1.6 10*3/uL (1.4-4.0); Lymphocytes % 13.9 % (21.3-54.2); Mean Corpuscular HGB Conc 30.6 GM/DL (32-36); Mean Corpuscular Volume 97.4 FL (87-102); Mean Platelet Volume 11.1 FL (9.6-12.0); Monocytes # 1.2 10*3/uL (0.11-0.8); Monocytes % 9.9 % (1.7-12.7); Neutrophils % 75.2 % (38.7-73.9); Platelet Count 247 T/CUMM (130-400); Red Blood Count 3.42 MC/CUMM (3.8-5.5); White Blood Count 11.6 T/CUMM (4-12)
[2021-12-23 04:26] LABS: Calcium 8.7 MG/DL (8.5-10.1); Osmolality,Calculated 291.4 MOS/KG (273-304); Potassium 3.8 MMOL/L (3.5-5.1)
[2021-12-23] MEDS: LEVOTHYROXINE 50 MCG TABLET PO SCH (05:30)
[2021-12-23] MEDS: INSULIN LISPRO 100 UNIT/ML SUBCUT SCH ×4 (07:24→21:51)
[2021-12-23] MEDS ORDERED: FUROSEMIDE 20 MG/2 ML VIAL IV ONE (08:41)
[2021-12-23] MEDS: predniSONE 20 MG TABLET PO SCH (08:58)
[2021-12-23] MEDS: PANTOPRAZOLE 40 MG VIAL IV SCH (08:58)
[2021-12-23] MEDS: ASPIRIN CHEW 81 MG TABLET PO SCH (08:58)
[2021-12-23] MEDS: MAGNESIUM OXIDE 400 MG TABLET PO SCH ×2 (08:59→21:52)
[2021-12-23] MEDS: FERROUS SULFATE 325 MG TABLET PO SCH ×2 (08:59→21:52)
[2021-12-23] MEDS: ATORVASTATIN 80 MG TABLET PO SCH (08:59)
[2021-12-23] MEDS: allopurinoL 100 MG TABLET PO SCH (08:59)
[2021-12-23] MEDS: GABAPENTIN 400 MG CAPSULE PO SCH ×2 (09:01→21:52)
[2021-12-24 05:32] LABS: Basophils % 0.1 % (0.0-0.8); Hematocrit 32.3 VOL% (35.7-47.0); Hemoglobin 9.9 GM/DL (12.0-16.0); Immature Granulocytes % 0.9 %; Lymphocytes # 1.4 10*3/uL (1.4-4.0); Lymphocytes % 13.2 % (21.3-54.2); Mean Corpuscular HGB Conc 30.7 GM/DL (32-36); Mean Corpuscular Volume 95.8 FL (87-102); Mean Platelet Volume 11.5 FL (9.6-12.0); Neutrophils % 76.8 % (38.7-73.9); Platelet Count 239 T/CUMM (130-400); Red Blood Count 3.37 MC/CUMM (3.8-5.5); Red Cell Distribution Width 18.8 % (9.3-17.3); White Blood Count 10.9 T/CUMM (4-12)
[2021-12-24 06:03] LABS: Calcium 8.5 MG/DL (8.5-10.1); Potassium 3.8 MMOL/L (3.5-5.1)
[2021-12-24] MEDS: hydrALAZINE 20 MG/1 ML VIAL IV PRN (06:10)
[2021-12-24] MEDS: LEVOTHYROXINE 50 MCG TABLET PO SCH (06:11)
[2021-12-24] MEDS: INSULIN LISPRO 100 UNIT/ML SUBCUT SCH ×4 (08:00→20:42)
[2021-12-24] MEDS: ASPIRIN CHEW 81 MG TABLET PO SCH (09:01)
[2021-12-24] MEDS: PANTOPRAZOLE 40 MG VIAL IV SCH (09:01)
[2021-12-24] MEDS: allopurinoL 100 MG TABLET PO SCH (09:02)
[2021-12-24] MEDS: FERROUS SULFATE 325 MG TABLET PO SCH ×2 (09:02→20:41)
[2021-12-24] MEDS: GABAPENTIN 400 MG CAPSULE PO SCH ×2 (09:02→20:42)
[2021-12-24] MEDS: MAGNESIUM OXIDE 400 MG TABLET PO SCH ×2 (09:02→20:42)
[2021-12-24] MEDS: predniSONE 20 MG TABLET PO SCH (09:02)
[2021-12-24] MEDS: FUROSEMIDE 20 MG TABLET PO SCH (09:02)
[2021-12-24] MEDS: ATORVASTATIN 80 MG TABLET PO SCH (09:07)
[2021-12-24 10:19] LABS: Pt O2 Delivery Device Room Air
[2021-12-24 10:20] LABS: ABG Base Excess 8.1 MMOL/L (-2.5-2.5); ABG HCO3 31.8 MMOL/L (20-26); ABG Oxygen Saturation 97.3 % (95-100); ABG PCO2 45.8 MM HG (35-48); ABG PH 7.464 (7.35-7.45); ABG PO2 83.8 MM HG (80-95); ABG TCO2 29.9 MMOL/L (23-27)
[2021-12-24] MEDS: VALSARTAN 160 MG TABLET PO SCH (10:24)
[2021-12-25] MEDS: LEVOTHYROXINE 50 MCG TABLET PO SCH (05:30)
[2021-12-25 05:50] LABS: Calcium 8.7 MG/DL (8.5-10.1); Potassium 3.8 MMOL/L (3.5-5.1)
[2021-12-25 05:55] LABS: Basophils % 0.1 % (0.0-0.8); Eosinophils % 0.1 % (0.00-10.9); Hematocrit 31.1 VOL% (35.7-47.0); Hemoglobin 9.5 GM/DL (12.0-16.0); Immature Granulocytes % 0.6 %; Immature Granulocytes Absolute 0.06 #; Lymphocytes # 2.1 10*3/uL (1.4-4.0); Lymphocytes % 20.5 % (21.3-54.2); Mean Corpuscular HGB Conc 30.5 GM/DL (32-36); Mean Corpuscular Volume 99.4 FL (87-102); Mean Platelet Volume 11.1 FL (9.6-12.0); Monocytes # 0.9 10*3/uL (0.11-0.8); Monocytes % 9.2 % (1.7-12.7); Neutrophils % 69.5 % (38.7-73.9); Platelet Count 215 T/CUMM (130-400); Red Blood Count 3.13 MC/CUMM (3.8-5.5); Red Cell Distribution Width 19.1 % (9.3-17.3); White Blood Count 10.2 T/CUMM (4-12)
[2021-12-25] MEDS: INSULIN LISPRO 100 UNIT/ML SUBCUT SCH ×3 (07:51→17:57)
[2021-12-25] MEDS ORDERED: predniSONE 20 MG TABLET PO SCH (09:00)
[2021-12-25] MEDS: FERROUS SULFATE 325 MG TABLET PO SCH (10:14)
[2021-12-25] MEDS: VALSARTAN 160 MG TABLET PO SCH (10:14)
[2021-12-25] MEDS: FUROSEMIDE 20 MG TABLET PO SCH (10:14)
[2021-12-25] MEDS: GABAPENTIN 400 MG CAPSULE PO SCH (10:15)
[2021-12-25] MEDS: allopurinoL 100 MG TABLET PO SCH (10:15)
[2021-12-25] MEDS: ASPIRIN CHEW 81 MG TABLET PO SCH (10:15)
[2021-12-25] MEDS: MAGNESIUM OXIDE 400 MG TABLET PO SCH (10:15)
[2021-12-25] MEDS: PANTOPRAZOLE 40 MG VIAL IV SCH (10:16)
[2021-12-25] MEDS: ATORVASTATIN 80 MG TABLET PO SCH (10:18)
[2021-12-25 17:40] VITALS: BP 142/65
== END 2021-12-25 19:33 | disposition hospice, home (50) | DRG 207 ==
LOC: N.ED 05:27 → N.EDINP 09:09 → SUATTDRO 09:09 → N.CC 09:48 → N.TELEN 12-23 16:59
PROVIDERS: ADMIT Internal Medicine; ATTEND Emergency Medicine